=== PATIENT | female | born 1960 | race Caucasian/White ===

== ENCOUNTER 2020-09-05 09:16 | Emergency (ER) | payer MEDICARE ==
[~2020-09-05] VITALS: Ht 152.4 cm; Wt 61.2 kg
[2020-09-05] MEDS ORDERED: TYLENOL325 M1 PO (09:25)
[2020-09-05] MEDS ORDERED: PROAIR RESPICL90 MCG (09:26)
[2020-09-05] MEDS ORDERED: BIOTIN5000 MCG PO (09:26)
[2020-09-05] MEDS ORDERED: DIAZEPAM 5 MG5 MG (09:26)
[2020-09-05] MEDS ORDERED: NEURONTIN100 MG (09:33)
[2020-09-05] MEDS ORDERED: LEVOTHYROXINE125 MC1 PO (09:33)
[2020-09-05] MEDS ORDERED: CORTEF 20 MG TA20 MG PO (09:33)
[2020-09-05] MEDS ORDERED: NICOTINE PATCH1 EAC2 (09:34)
[2020-09-05] MEDS ORDERED: OXYCODONE HCL5 MG PO (09:34)
[2020-09-05] MEDS ORDERED: ONDANSETRON ODT8 MG PO (09:34)
[2020-09-05 09:47] LABS: ABSOLUTE BASOPHILS 0.1 thou/uL (0.0-0.2); ABSOLUTE EOSINOPHILS 0.2 thou/uL (0.0-0.7); ABSOLUTE LYMPHOCYTES 1.2 thou/uL (0.8-5.3); ABSOLUTE MONOCYTES 0.5 thou/uL (0.0-1.2); BASOPHILS 0.9 %; HEMATOCRIT 28.2 % (37.0-47.0); HEMOGLOBIN 8.6 gm/dL (12.0-15.0); LYMPHOCYTES 15.3 %; MCH 25.8 pg (26.0-34.0); MCHC 30.3 g/dL (28.0-37.0); MCV 85.1 fL (80.0-100.0); MONOCYTES 6.7 %; MPV 8.5 fl. (7.2-11.1); NUCLEATED RBCS 0 /100WBC; PLATELET COUNT* 257 thou/uL (150-400); POLYS 75.1 %; RBC 3.32 mil/uL (4.20-5.00)
[2020-09-05 09:57] LABS: CALCIUM 8.7 mg/dL (8.5-10.1); CREATININE 0.6 mg/dL (0.6-1.3); POTASSIUM 3.7 mmol/L (3.5-5.1)
[2020-09-05 10:00] LABS: APTT 21.4 Seconds (25.0-31.3); PROTIME 10.3 Seconds (9.20-11.50)
[2020-09-05 10:02] LABS: ALBUMIN 2.8 g/dL (3.4-5.0); TOTAL BILIRUBIN 0.2 mg/dL (<0.1-1.0); TOTAL PROTEIN 6.4 g/dL (6.4-8.2)
[2020-09-05 11:14] VITALS: BP 120/59
--- NOTE | 2020-09-05 14:33 | EKG ---
[place] [address] ELECTROCARDIOGRAM REPORT Name: KIAH MENDEZ Room: [facility]#: [id number] Admission: 09/05/20 Attend Phys: Discharge: 09/05/20 Date of : 58 Date of Service: 09/05/20926 Report #: [id number] THIS REPORT FOR: //name// [facility] ED Test Date: 2020-09-05 Test Time: 09:27:01 Pat Name: KIAH MENDEZ Department: Room: Gender: Card Fixer: : 1960 Requested By: Lorenzo Sanchez Order Number: [id number] MD: Shine Castillo Measurements Intervals [place] Rate: 89 P: [place]: QRS: 24 QRSD: 91 T: 18 QT: 339 QTc: 413 Interpretive Statements Atrial fibrillation Low voltage, precordial leads RSR' in V1 or V2, probably normal variant No previous ECG available for comparison Electronically Signed On 09-05-2020 14:32:48 CDT by Shine Castillo [email or web address] <ELECTRONICALLY SIGNED> By: Shine Castillo MD, [facility] 09/05/20 1432 6 6 Shine Castillo MD, [facility] /EPI
== END 2020-09-05 11:16 | disposition home or self-care (01) ==
LOC: M.ERS 09:16
PROVIDERS: Family Medicine
DX: S93.492A Sprain of other ligament of left ankle, initial encounter (principal); Z98.890 Other specified postprocedural states; Z85.118 Personal history of other malignant neoplasm of bronchus and lung; W18.39XA Other fall on same level, initial encounter; Y93.89 Activity, other specified; Y92.091 Bathroom in other non-institutional residence as the place of occurrence of the external cause; Y99.8 Other external cause status

== ENCOUNTER → 2020-10-30 | Outpatient (CLI) | payer OTHER ==
[~2020-10-30] MED LIST: BIOTIN5000 MCG PO; CORTEF 20 MG TA20 MG PO; DIAZEPAM 5 MG5 MG; LEVOTHYROXINE125 MC1 PO; NEURONTIN100 MG; NICOTINE PATCH1 EAC2; ONDANSETRON ODT8 MG PO; OXYCODONE HCL5 MG PO; PROAIR RESPICL90 MCG; TYLENOL325 M1 PO
--- NOTE | 2020-11-12 08:20 | PF ---
[address] [address] PULMONARY FUNCTION REPORT Name: KIAH MENDEZ Room: [facility]#: [id number] Admission: 10/30/20 Attend Phys: Physician not on staf Discharge: Date of : 58 Report #: [id number] THIS REPORT FOR: cc: PATSY MELO M.D, JEAN-PHILIPPE E. M.D Pervez, Adeel MD ~ DOC #: [id number] Gerry Ackerman MD DATE OF VISIT: 10/30/2020 The FEV1/FVC ratio is decreased to 59% with an FVC moderately decreased to 39%. The FEV1 is decreased to 30% with FEF 25-75 is decreased only 9%. After the administration of a bronchodilator, there is a 16% increase in FVC and a 10% increase in FEV1 and increase in FVC does not exceed 200 mL. Post bronchodilator FEV1 is 0.71 liters. LUNG VOLUMES: Not available. The DLCO as adjusted for hemoglobin is markedly decreased to 40% only. FLOW VOLUME LOOP: Concave upwards. IMPRESSION: 1. Severe obstruction with some improvement with albuterol, which is just below the criteria for reversibility. 2. Would need lung volumes to evaluate as to whether significant restriction is also present. 3. The DLCO as adjusted for hemoglobin is markedly decreased to 40% only. MD KATHY Meyer/KORTNEY/JAKE <ELECTRONICALLY SIGNED> By: Gerry Ackerman MD 11/12/20819 55 0205Atricia Ackerman MD /nt
== END ==
LOC: M.PUL 14:00
DX: C34.12 Malignant neoplasm of upper lobe, left bronchus or lung (principal); R94.2 Abnormal results of pulmonary function studies

== ENCOUNTER 2021-01-14 10:46 | Emergency (ER) | payer MEDICARE, OTHER ==
[~2021-01-14] VITALS: Ht 147.3 cm; Wt 73.9 kg
[~2021-01-14 10:46] MED LIST changes: +LEVO-T100 MCG PO; -LEVOTHYROXINE125 MC1 PO
[2021-01-14] MEDS ORDERED: CORTEF10 MG PO (11:06)
[2021-01-14] MEDS ORDERED: ZOLOFT 50 MG TA50 MG PO (11:06)
[2021-01-14] MEDS ORDERED: DEXAMETHASO4 MG/1 ML IM (11:07)
[2021-01-14] MEDS ORDERED: STIOLTO RESPIMAT4 GM INH (11:07)
[2021-01-14] MEDS ORDERED: OXYBUTYNIN 5 MG5 M2 PO (11:08)
[2021-01-14 11:18] LABS: NUCLEATED RBCS 0 /100WBC; RDW-CV 16.7 % (10.5-14.5)
[2021-01-14 11:20] LABS: ABSOLUTE BASOPHILS 0.1 thou/uL (0.0-0.2); ABSOLUTE EOSINOPHILS 0.4 thou/uL (0.0-0.7); ABSOLUTE MONOCYTES 0.4 thou/uL (0.0-1.2); ABSOLUTE NEUTROPHILS 5.4 thou/uL (1.6-8.1); BASOPHILS 1.2 %; EOSINOPHILS 5.9 %; HEMATOCRIT 27.3 % (37.0-47.0); HEMOGLOBIN 8.4 gm/dL (12.0-15.0); LYMPHOCYTES 13.6 %; MCH 24.2 pg (26.0-34.0); MCHC 30.8 g/dL (28.0-37.0); MCV 78.4 fL (80.0-100.0); MONOCYTES 5.3 %; MPV 8.4 fl. (7.2-11.1); PLATELET COUNT* 245 thou/uL (150-400); RBC 3.48 mil/uL (4.20-5.00); WBC 7.3 thou/uL (4.0-11.0)
[2021-01-14 11:25] LABS: CALCIUM 8.5 mg/dL (8.5-10.1); CREATININE 0.7 mg/dL (0.6-1.3); POTASSIUM 3.8 mmol/L (3.5-5.1)
[2021-01-14 11:30] LABS: ALBUMIN 3.2 g/dL (3.4-5.0); TOTAL BILIRUBIN 0.2 mg/dL (<0.1-1.0); TOTAL PROTEIN 7.1 g/dL (6.4-8.2)
[2021-01-14 12:57] LABS: URINE BILIRUBIN NEGATIVE (Negative); URINE BLOOD NEGATIVE (Negative); URINE CLARITY CLEAR; URINE COLOR YELLOW; URINE GLUCOSE-RANDOM NEGATIVE (Negative); URINE KETONES NEGATIVE (Negative); URINE LEUKOCYTES-REFLEX 2+ (Negative); URINE NITRITE-REFLEX POSITIVE (Negative); URINE PROTEIN TRACE (Negative); URINE UROBILINOGEN 0.2 E.U./dl (0.2-1.0)
[2021-01-14 13:04] LABS: SQUAMOUS 0-3 Few /LPF (0-3)
[2021-01-14 13:05] LABS: BACTERIA-REFLEX >30 Many /HPF (None Seen); CASTS None Seen /LPF (None Seen); CRYSTALS None Seen /LPF (None Seen); MUCUS 0-3 Light strn/LPF (None Seen); URINE RBC 0-2 Rare /HPF (0-2)
[2021-01-14] MEDS ORDERED: CEPHALEXIN500 MG PO (13:52)
[2021-01-14 14:37] VITALS: BP 132/54
--- NOTE | 2021-01-15 15:23 | EKG ---
[place] [address] ELECTROCARDIOGRAM REPORT Name: KIAH MENDEZ Room: [facility]#: [id number] Admission: 01/14/21 Attend Phys: Discharge: 01/14/21 Date of : 58 Date of Service: 01/14/21 1059 Report #: [id number] THIS REPORT FOR: //name// [facility] ED Test Date: 2021-01-14 Test Time: 10:59:14 Pat Name: KIAH MENDEZ Department: Room: Gender: Twitchell Operator: SONIA : 1960 Requested By: Asher Diaz Order Number: [id number] MD: Ed Miner Measurements Intervals [place] Rate: 81 P: -29 [place]: 130 QRS: 21 QRSD: 85 T: 4 QT: 346 QTc: 402 Interpretive Statements Sinus rhythm Low voltage, precordial leads RSR' in V1 or V2, right VCD Baseline wander in lead(s) V1 Compared to ECG 09/05/2020 09:27:01 sinus rhythm persists Electronically Signed On 01-15-2021 15:23:26 CDT by Ed Miner [email or web address] <ELECTRONICALLY SIGNED> By: Ed Miner MD, [facility] 01/15/21 1523 1059 1059 Ed Miner MD, [facility] /EPI
== END 2021-01-14 14:37 | disposition home or self-care (01) ==
LOC: M.ERS 10:46
PROVIDERS: Emergency Medicine Emergency Medical Services
DX: N39.0 Urinary tract infection, site not specified (principal); Z98.890 Other specified postprocedural states

== ENCOUNTER 2021-03-14 18:07 | Inpatient (IN) | payer MEDICARE ==
[~2021-03-14] VITALS: Ht 162.6 cm; Wt 79.0 kg
[~2021-03-14 18:07] MED LIST changes: +CEPHALEXIN500 MG PO; +CORTEF10 MG PO; +DEXAMETHASO4 MG/1 ML IM; -NEURONTIN100 MG; +NEURONTIN100 MG PO; +OXYBUTYNIN 5 MG5 M2 PO; +STIOLTO RESPIMAT4 GM INH; +ZOLOFT 50 MG TA50 MG PO
[2021-03-14 18:12] VITALS: BP 137/71
[2021-03-14 19:44] LABS: ABSOLUTE BASOPHILS 0.1 thou/uL (0.0-0.2); ABSOLUTE EOSINOPHILS 0.2 thou/uL (0.0-0.7); ABSOLUTE LYMPHOCYTES 1.2 thou/uL (0.8-5.3); ABSOLUTE MONOCYTES 0.5 thou/uL (0.0-1.2); ABSOLUTE NEUTROPHILS 6.6 thou/uL (1.6-8.1); BASOPHILS 0.7 %; EOSINOPHILS 1.8 %; HEMOGLOBIN 9.4 gm/dL (12.0-15.0); LYMPHOCYTES 14.2 %; MCH 24.8 pg (26.0-34.0); MCHC 30.3 g/dL (28.0-37.0); MCV 81.9 fL (80.0-100.0); MONOCYTES 5.5 %; MPV 8.3 fl. (7.2-11.1); NUCLEATED RBCS 0 /100WBC; PLATELET COUNT* 250 thou/uL (150-400); POLYS 77.8 %; RBC 3.78 mil/uL (4.20-5.00); WBC 8.5 thou/uL (4.0-11.0)
[2021-03-14 19:55] LABS: CALCIUM 8.5 mg/dL (8.5-10.1); CREATININE 0.7 mg/dL (0.6-1.3); POTASSIUM 4.3 mmol/L (3.5-5.1)
[2021-03-14 19:59] LABS: ALBUMIN 3.2 g/dL (3.4-5.0); TOTAL BILIRUBIN 0.2 mg/dL (<0.1-1.0)
[2021-03-14 23:26] LABS: URINE BILIRUBIN NEGATIVE (Negative); URINE BLOOD NEGATIVE (Negative); URINE CLARITY CLEAR; URINE COLOR YELLOW; URINE GLUCOSE-RANDOM NEGATIVE (Negative); URINE KETONES NEGATIVE (Negative); URINE LEUKOCYTES NEGATIVE (Negative); URINE NITRITE NEGATIVE (Negative); URINE PROTEIN NEGATIVE (Negative); URINE SPECIFIC GRAVITY 1.025 (1.005-1.030); URINE UROBILINOGEN 0.2 E.U./dl (0.2-1.0)
[2021-03-15] VITALS (18 sets, daily range): BP systolic 83–146; BP diastolic 50–84
--- NOTE | 2021-03-15 09:39 | EKG ---
[place] [address] ELECTROCARDIOGRAM REPORT Name: MENDEZKIAH Lenora Room: [address]#: [id number] Admission: 03/14/21 Attend Phys: Loli Malagon MD Discharge: Date of : 58 Date of Service: 03/14/21 1826 Report #: [id number] THIS REPORT FOR: //name// [facility] ED Test Date: 2021-03-14 Test Time: 18:26:41 Pat Name: KIAH MENDEZ Department: Room: [facility] Gender: F School Commissioner: DAT : 1960 Requested By: Asher Diaz Order Number: [id number] MD: Ed Miner Measurements Intervals [place] Rate: 86 P: 44 RI: 156 QRS: 18 QRSD: 87 T: 4 QT: 356 QTc: 426 Interpretive Statements Sinus rhythm Low voltage, precordial leads RSR' in V1 or V2, right VCD Compared to ECG 01/14/2021 10:59:14 Minor IVCD right persists Electronically Signed On 03-15-2021 9:39:07 CDT by Ed Miner [email or web address] <ELECTRONICALLY SIGNED> By: Ed Miner MD, FAC 03/15/21 0939 1826 1826 Ed Miner MD, FAC /EPI
[2021-03-15 10:33] LABS: MAGNESIUM 1.8 mg/dL (1.8-2.4)
[2021-03-15 10:46] LABS: PHOSPHORUS* 4.3 mg/dL (2.5-4.9)
[2021-03-15 10:52] LABS: BE 7.3 mmol/L (-2 to +3)
[2021-03-15 10:55] LABS: PCO2 81.6 mmHg (35.0-45.0); PO2 188.3 mmHg (75.0-100.0); pH 7.268 (7.340-7.450)
[2021-03-15 13:02] LABS: PO2 101.5 mmHg (75.0-100.0); pH 7.326 (7.340-7.450)
[2021-03-15 13:06] LABS: PCO2 72.5 mmHg (35.0-45.0)
[2021-03-15 15:41] LABS: ABSOLUTE EOSINOPHILS 0.1 thou/uL (0.0-0.7); ABSOLUTE LYMPHOCYTES 1.1 thou/uL (0.8-5.3); ABSOLUTE MONOCYTES 0.5 thou/uL (0.0-1.2); ABSOLUTE NEUTROPHILS 5.5 thou/uL (1.6-8.1); BASOPHILS 0.7 %; EOSINOPHILS 1.4 %; HEMATOCRIT 29.7 % (37.0-47.0); LYMPHOCYTES 15.5 %; MCHC 30.2 g/dL (28.0-37.0); MCV 82.7 fL (80.0-100.0); MONOCYTES 7.3 %; MPV 8.2 fl. (7.2-11.1); NUCLEATED RBCS 0 /100WBC; PLATELET COUNT* 225 thou/uL (150-400); POLYS 75.1 %; RBC 3.59 mil/uL (4.20-5.00); RDW-CV 18.8 % (10.5-14.5); WBC 7.4 thou/uL (4.0-11.0)
[2021-03-15 15:56] LABS: APTT 23.6 Seconds (25.0-31.3); INR 1.1; PROTIME 11.2 Seconds (9.20-11.50)
[2021-03-15 16:06] LABS: BE 7.3 mmol/L (-2 to +3); PO2 122.1 mmHg (75.0-100.0)
[2021-03-15 16:10] LABS: PCO2 76.7 mmHg (35.0-45.0); pH 7.288 (7.340-7.450)
[2021-03-15 16:24] LABS: ALKALINE PHOSPHATASE 171 U/L (46-116); ANION GAP < 0 mmol/L (7-16); BUN 22 mg/dL (7-18); CALCIUM 7.8 mg/dL (8.5-10.1); CHLORIDE 104 mmol/L (98-107); CO2 38 mmol/L (21-32); GLUCOSE 94 mg/dL (70-99); MAGNESIUM 1.9 mg/dL (1.8-2.4); POTASSIUM 4.2 mmol/L (3.5-5.1); SGOT 80 U/L (15-37); SGPT 82 U/L (30-65); SODIUM 138 mmol/L (136-145); TOTAL BILIRUBIN 0.3 mg/dL (<0.1-1.0); TOTAL PROTEIN 6.7 g/dL (6.4-8.2)
[2021-03-15 20:42] LABS: BE 7.8 mmol/L (-2 to +3); PO2 102.7 mmHg (75.0-100.0)
[2021-03-15 20:45] LABS: PCO2 77.7 mmHg (35.0-45.0); pH 7.289 (7.340-7.450)
[2021-03-16] VITALS (40 sets, daily range): BP systolic 87–155; BP diastolic 36–82
[2021-03-16 00:42] LABS: HEMOGLOBIN 9.1 gm/dL (12.0-15.0); MCH 25.1 pg (26.0-34.0); MCHC 30.2 g/dL (28.0-37.0); MCV 82.9 fL (80.0-100.0); MPV 8.4 fl. (7.2-11.1); NUCLEATED RBCS 0 /100WBC; PLATELET COUNT* 228 thou/uL (150-400); RBC 3.62 mil/uL (4.20-5.00); RDW-CV 19.5 % (10.5-14.5); WBC 9.4 thou/uL (4.0-11.0)
[2021-03-16 00:43] LABS: BE 7.8 mmol/L (-2 to +3); PCO2 VENOUS 69.1 mmHg (41.0-51.0); PO2 VENOUS 133.6 mmHg (35.0-45.0)
[2021-03-16 00:57] LABS: CALCIUM 8.3 mg/dL (8.5-10.1); CREATININE 0.9 mg/dL (0.6-1.3); PHOSPHORUS* 4.1 mg/dL (2.5-4.9); POTASSIUM 4.3 mmol/L (3.5-5.1)
[2021-03-16 01:03] LABS: CALCIUM 8.2 mg/dL (8.5-10.1); MAGNESIUM 1.9 mg/dL (1.8-2.4); POTASSIUM 4.4 mmol/L (3.5-5.1); TOTAL BILIRUBIN 0.2 mg/dL (<0.1-1.0)
[2021-03-16 03:59] LABS: ABSOLUTE LYMPHOCYTES 0.7 thou/uL (0.8-5.3); ABSOLUTE NEUTROPHILS 8.7 thou/uL (1.6-8.1); PLATELET ESTIMATE ADEQUATE
[2021-03-16 04:00] LABS: ANISOCYTOSIS 1+
[2021-03-16 04:01] LABS: POLYCHROMASIA 1+
[2021-03-16 09:55] LABS: BE 6.3 mmol/L (-2 to +3)
[2021-03-16 10:02] LABS: PCO2 76.2 mmHg (35.0-45.0); PO2 169.7 mmHg (75.0-100.0)
[2021-03-17] VITALS (15 sets, daily range): BP systolic 87–116; BP diastolic 46–78
[2021-03-17 06:24] LABS: HEMATOCRIT 25.6 % (37.0-47.0); HEMOGLOBIN 7.8 gm/dL (12.0-15.0); MCH 25.2 pg (26.0-34.0); MCHC 30.4 g/dL (28.0-37.0); MCV 82.7 fL (80.0-100.0); MPV 8.7 fl. (7.2-11.1); RBC 3.1 mil/uL (4.20-5.00); RDW-CV 19.5 % (10.5-14.5); WBC 10.3 thou/uL (4.0-11.0)
[2021-03-17 06:43] LABS: ALBUMIN 2.9 g/dL (3.4-5.0); MAGNESIUM 2.1 mg/dL (1.8-2.4); POTASSIUM 4.2 mmol/L (3.5-5.1); TOTAL BILIRUBIN 0.2 mg/dL (<0.1-1.0)
[2021-03-17 06:46] LABS: CALCIUM 8.4 mg/dL (8.5-10.1); CREATININE 0.8 mg/dL (0.6-1.3); TOTAL PROTEIN 6.6 g/dL (6.4-8.2)
[2021-03-18] VITALS (8 sets, daily range): BP systolic 112–135; BP diastolic 50–710
--- NOTE | 2021-03-18 12:10 | 2DMMODE ---
[place] [address] 2 D/M-MODE ECHOCARDIOGRAM Name: KIAH MENDEZ Lenora Room: [address] IN [facility]#: [id number] Admission: 03/14/21 Attend Phys: Loli Malagon MD Discharge: Date of : 58 Date of Service: 03/18/21 1210 Report #: [id number] THIS REPORT FOR: cc: PATSY MELO M.D, JEAN-PHILIPPE E. M.D Blick, David R. MD [facility] ~ APPROVED REPORT Study performed: 03/15/2021 15:32:34 EXAM: Comprehensive 2D, Doppler, and color-flow Echocardiogram Patient Location: In-Patient Room #: 203 Status: routine BSA: 1.82 HR: 89 bpm BP: 97/55 mmHg Rhythm: NSR Other Information Study Quality: Fair Indications Dyspnea 2D Dimensions IVSd: 10.22 (7-11mm) LVOT Diam: 18.67 (18-24mm) LVDd: 41.18 mm PWd: 9.02 (7-11mm) Ascending Ao: 29.78 (22-36mm) LVDs: 26.09 (25-40mm) Aortic Root: 28.95 mm Aortic Valve AoV Peak Chandrakant.: 1.33 m/s AO Peak Gr.: 7.03 mmHg LVOT Max P.13 mmHg AO Mean Gr.: 4.34 mmHg LVOT Mean P.55 mmHg LVOT Max V: 0.88 m/s AO V2 VTI: 22.47 cm LVOT Mean V: 0.58 m/s LISANDRO (VTI): 1.93 cm2 LVOT V1 VTI: 15.83 cm Mitral Valve E/A Ratio: 0.79 MV Decel. Time: 248.63 ms MV E Max Chandrakant.: 0.71 m/[place] [address] 2 D/M-MODE ECHOCARDIOGRAM Name: JERZY MENDEZWilber Cooley Room: [address] IN [facility].#: [id number] Admission: 03/14/21 Attend Phys: Loli Malagon MD Discharge: Date of : 58 Date of Service: 03/18/21 1210 Report #: [id number] PHT: 72.10 ms MVA (PHT): 3.05 cm2 Pulmonary Valve PV Peak Chandrakant.: 0.95 m/s PV Peak Gr.: 3.59 mmHg Tricuspid Valve RAP Estimate: 5.00 mmHg TR Peak Gr.: 22.49 mmHg RVSP: 27.00 mmHg PA Pressure: 27.00 mmHg Left Ventricle The left ventricle is normal size. Endocardium was not well visualized. There is normal left ventricular wall thickness. Left ventricular systolic function is normal. The left ventricular ejection fraction is within the normal range. LVEF is 55-60%. Grade I - abnormal relaxation pattern. Right Ventricle The right ventricle is normal size. The right ventricular systolic function is normal. Atria The left atrium size is normal. The right atrium size is normal. Aortic Valve The aortic valve is normal in structure. No aortic regurgitation is present. There is no aortic valvular stenosis. Mitral Valve The mitral valve is normal in structure. There is no mitral valve regurgitation noted. No evidence of mitral valve stenosis. Tricuspid Valve The tricuspid valve is normal in structure. Trace tricuspid regurgitation. No pulmonary hypertension. Pulmonic Valve Pulmonic valve is not well visualized. There is no pulmonic valvular regurgitation. Great Vessels The aortic root is normal in size. IVC is normal in size and collapses >50% [place] [address] 2 D/M-MODE ECHOCARDIOGRAM Name: KIAH MENDEZ Lenora Room: [address]#: [id number] Admission: 03/14/21 Attend Phys: Loli Malagon MD Discharge: Date of : 58 Date of Service: 03/18/21 1210 Report #: [id number] Pericardium There is no pericardial effusion. <Conclusion> Left ventricular systolic function is normal. The left ventricular ejection fraction is within the normal range. <ELECTRONICALLY SIGNED> By: Shine Castillo MD, FACC 03/18/21 1210 1210 1210 Shine Castillo MD, FAC /INF
[2021-03-18 13:04] LABS: BE 9.5 mmol/L (-2 to +3); pH 7.363 (7.340-7.450)
[2021-03-18 13:08] LABS: PCO2 65.8 mmHg (35.0-45.0)
--- NOTE | 2021-03-18 14:25 | CON ---
[address] [address] CONSULTATION Name: KIAH MENDEZ Room: [address] IN .R.#: [id number] Admission: 03/14/21 Attend Phys: Loli Malagon MD Discharge: Date of : 58 Report #: [id number] THIS REPORT FOR: cc: PATSY MELO M.D, JEAN-PHILIPPE E. M.D Pervez, Adeel MD ~ DATE OF CONSULTATION: 03/15/2021 REQUESTING PHYSICIAN: Consult has been requested by Dr. Fam. INDICATION FOR CONSULTATION: Acute on chronic hypercarbic respiratory failure. HISTORY OF PRESENT ILLNESS: This is a 60-year-old female. Past medical history is as mentioned below. The patient at this time is very lethargic and is on a BiPAP; therefore, information available is limited. We do know that she uses oxygen at home. Also, there is a previous pulmonary function test report available, which is consistent with severe obstruction. The patient is reported to have had lung cancer and has had radiation to this with reported poosible brain metastasis in the past, so she has had a CT head now, though it appears that if present, these metastases are not large enough to be seen on the CT. The patient is now admitted. Yesterday presentation was with a fall. The patient is reported to have slipped and then had pain in the left shoulder. There is no obvious fracture noted on the x-rays. Yesterday, the patient was requiring 3 liters oxygen via nasal cannula to maintain O2 saturation, which appears to be close to her baseline oxygen use. She has declined today. She has a blood pressure on the lower side at 97/55. Her chest x-ray does look worse than yesterday as well. It could as well it is possible that there are interstitial infiltrates developing; however, acute change is more likely to be due to an increase in pulmonary vascular congestion. She also was febrile with a temperature of 38.1. She has had a CT of the abdomen and pelvis performed with IV dye today, which does not show any acute intraabdominal pathology. The patient is unable to provide a further history or review of systems. PAST MEDICAL HISTORY: Lung cancer with possibilty of brain metastasis, records not available, no metastatsis visible on CT Head . The patient is only known to have had radiation for this. No other known therapy to us, but information available is limited. COPD by last lung function tests are consistent with severe obstruction, long-term use of oxygen at home, long-term use of hydrocortisone at home, likely for adrenal insufficiency, hypothyroidism. I do not have a measure of her left ventricular [place] [address] CONSULTATION Name: JERZY MENDEZWilber Cooley Room: [address] [place] .R.#: [id number] Admission: 03/14/21 Attend Phys: Loli Malagon MD Discharge: Date of : 58 Report #: [id number] this time. SOCIAL HISTORY: Information regarding smoking, ethanol abuse or drug abuse is not available at this time. IMMUNIZATION HISTORY: It is unknown as to whether the patient is vaccinated for COVID-19. ALLERGIES: No known drug allergies. CURRENT MEDICATIONS: The list is in [employer] and is reviewed. HOME MEDICATIONS: Also list in [employer] reviewed. FAMILY HISTORY: No known family history. PHYSICAL EXAMINATION: GENERAL: The patient is on a BiPAP of 14/6 with 60% FiO2. She is saturating 94-95%. She is very lethargic, but briefly, opened eyes to verbal commands. VITAL SIGNS: She has a pulse of 99 and a blood pressure of 97/55. She was not ever being desaturated on the BiPAP. Temperature was 36.1; however, she had a temperature of 38.1 earlier. Body mass index 29. HEENT: Head is normocephalic and atraumatic. There is no throat erythema. Throat examination; however, is limited due to BiPAP in place. NECK: Does not show raised JVP asymmetry, mass or lymph nodes. CHEST: Symmetrical expansion on inspection and palpation. On auscultation, breath sounds are bilaterally equal, but decreased. Expirations are prolonged. I do not hear any added sounds. HEART: Regular. There is no murmur. ABDOMEN: Soft and nontender. EXTREMITIES: Lower extremities show no edema and no calf tenderness. SKIN: Dry and intact. NEUROLOGIC: Moves all extremities bilaterally equally and spontaneously with no focal deficit identified. RADIOGRAPHIC DATA: Chest x-ray since yesterday shows a change. I suspect that this is more likely due to increase in pulmonary vascular congestion. Interstitial infiltrates can also lead to this picture. ASSESSMENT AND PLAN: 1. Acute on chronic hypercarbic and hypoxemic respiratory failure. For now, we will keep her on BiPAP and switch BiPAP over to AVAPS mode. We will follow ABGs. Considering her respiratory failure, I would for now, not administer the benzodiazepine. If sedation is needed, then we will consider a Precedex drip. [address] [address] CONSULTATION Name: KIAH MENDEZ Room: [address]#: [id number] Admission: 03/14/21 Attend Phys: Loli Malagon MD Discharge: Date of : 58 Report #: [id number] The patient, however, does not appear to be needing it at this time. We will use fentanyl if needed for severe pain. Recommend obtaining a central access with a central line. 2. Pulmonary infiltrates/fever/fluid overload. It appears more likely to me that the findings in the chest x-ray today are due to increase in pulmonary vascular congestion, but interstitial infiltrates can also lead to this picture. Considering this for now, I held her IV fluids, but I ordered stat labs and will reassess once these are available. In the meantime, will continue with Zosyn and I agree with Zosyn. I may consider adding a second agent, likely doxycycline. More cultures and serologies are ordered. 3. Chronic obstructive pulmonary disease exacerbation. Based on the last pulmonary function test, she appears to have significant chronic obstructive pulmonary disease; therefore, she is likely to respond to Solu-Medrol. I ordered the same, also ordered DuoNebs. 4. History of lung cancer with possible brain metastasis. See discussion above. CT head does not show evidence of a bleed or mass 5. Adrenal insufficiency. Note that she remains on hydrocortisone long-term. In addition, I did order Solu-Medrol as above. 6. Status post fall with right arm and neck pain. She had a CT cervical spine, which in addition to the x-ray shoulder does not show major abnormalities. 7. Fever. Discussion regarding chest x-ray findings as above. In addition, she has had a CT of the abdomen and pelvis as well, which does not identify a focus of sepsis. 8. Deep venous thrombosis prophylaxis, Lovenox. 9. Gastrointestinal prophylaxis. We will order Protonix. 10. The patient is critically ill at this time. Total time spent providing critical care to this patient today is 46 minutes. <ELECTRONICALLY SIGNED> By: Gerry Ackerman MD 03/18/21 1425 1355 2047Atricia Ackerman MD /nt
[2021-03-19 04:29] VITALS: BP 112/58
[2021-03-19 06:19] LABS: ABSOLUTE LYMPHOCYTES 0.8 thou/uL (0.8-5.3); ABSOLUTE MONOCYTES 0.4 thou/uL (0.0-1.2); ABSOLUTE NEUTROPHILS 5.4 thou/uL (1.6-8.1); BASOPHILS 0.2 %; EOSINOPHILS 0.3 %; HEMATOCRIT 26.9 % (37.0-47.0); HEMOGLOBIN 8.2 gm/dL (12.0-15.0); LYMPHOCYTES 12.4 %; MCH 25.1 pg (26.0-34.0); MCHC 30.6 g/dL (28.0-37.0); MCV 82.1 fL (80.0-100.0); MONOCYTES 6.7 %; MPV 8.8 fl. (7.2-11.1); NUCLEATED RBCS 0 /100WBC; PLATELET COUNT* 191 thou/uL (150-400); POLYS 80.4 %; RBC 3.28 mil/uL (4.20-5.00); RDW-CV 19.9 % (10.5-14.5); WBC 6.7 thou/uL (4.0-11.0)
[2021-03-19 06:28] LABS: ALBUMIN 3.1 g/dL (3.4-5.0); CALCIUM 8.8 mg/dL (8.5-10.1); CREATININE 0.9 mg/dL (0.6-1.3); MAGNESIUM 1.8 mg/dL (1.8-2.4); POTASSIUM 3.7 mmol/L (3.5-5.1); TOTAL BILIRUBIN 0.2 mg/dL (<0.1-1.0); TOTAL PROTEIN 6.2 g/dL (6.4-8.2)
[2021-03-19 08:30] VITALS: BP 133/62
[2021-03-19 09:00] VITALS: BP 133/62
[2021-03-19 11:28] LABS: BE 10.7 mmol/L (-2 to +3); PO2 81.1 mmHg (75.0-100.0); pH 7.359 (7.340-7.450)
[2021-03-19 11:30] VITALS: BP 115/62
[2021-03-19 11:30] LABS: PCO2 69.1 mmHg (35.0-45.0)
[2021-03-19 15:55] VITALS: BP 121/74
[2021-03-19 20:00] VITALS: BP 130/64
[2021-03-20 00:05] VITALS: BP 120/69
[2021-03-20 04:40] VITALS: BP 103/65
[2021-03-20 04:42] LABS: HEMATOCRIT 28.7 % (37.0-47.0); HEMOGLOBIN 8.8 gm/dL (12.0-15.0); MCH 25.5 pg (26.0-34.0); MCHC 30.7 g/dL (28.0-37.0); MPV 8.9 fl. (7.2-11.1); RBC 3.46 mil/uL (4.20-5.00); RDW-CV 19.7 % (10.5-14.5); WBC 6.1 thou/uL (4.0-11.0)
[2021-03-20 05:02] LABS: ALBUMIN 3.1 g/dL (3.4-5.0); CALCIUM 9.1 mg/dL (8.5-10.1); CREATININE 0.7 mg/dL (0.6-1.3); MAGNESIUM 2.2 mg/dL (1.8-2.4); POTASSIUM 4.4 mmol/L (3.5-5.1); TOTAL BILIRUBIN 0.2 mg/dL (<0.1-1.0); TOTAL PROTEIN 6.7 g/dL (6.4-8.2)
[2021-03-20 07:30] VITALS: BP 114/58
[2021-03-20 07:33] VITALS: BP 110/59
[2021-03-20 11:58] VITALS: BP 116/61
[2021-03-20] MEDS ORDERED: LEVOFLOXACIN500 MG PO (12:22)
[2021-03-20] MEDS ORDERED: MIDODRINE HCL 55 M1 PO (12:22)
[2021-03-20] MEDS ORDERED: IPRAT-ALBUT 0.5-3 ML INH (12:22)
[2021-03-20] MEDS ORDERED: PREDNISONE 10 M10 M1 PO (12:22)
== END 2021-03-20 16:07 | DRG 177 ==
LOC: M.ERS 18:07 → M.2W 21:45 → M.ICU 21:45 → M.TBA-ER 21:45 → M.2W 03-15 00:10 → M.ICU 03-15 16:14 → M.2W 03-17 19:14
PROVIDERS: Emergency Medicine; Emergency Medicine Emergency Medical Services; Internal Medicine; Internal Medicine Critical Care Medicine; Orthopaedic Surgery; Pediatrics; ADMIT Family Medicine; ATTEND Family Medicine
PROC: 5A09357 Assistance with Respiratory Ventilation, Less than 24 Consecutive Hours, Continuous Positive Airway Pressure (ICD-10-PCS; principal; 2021-03-15)
PROC: 02HV33Z Insertion of Infusion Device into Superior Vena Cava, Percutaneous Approach (ICD-10-PCS; principal; 2021-03-15)
PROC: B548ZZA Ultrasonography of Superior Vena Cava, Guidance (ICD-10-PCS; principal; 2021-03-15)
PROC: 5A0935A Assistance with Respiratory Ventilation, Less than 24 Consecutive Hours, High Flow/Velocity Cannula (ICD-10-PCS; 2021-03-16)
PROC: 5A09357 Assistance with Respiratory Ventilation, Less than 24 Consecutive Hours, Continuous Positive Airway Pressure (ICD-10-PCS; 2021-03-17)
PROC: 5A0935A Assistance with Respiratory Ventilation, Less than 24 Consecutive Hours, High Flow/Velocity Cannula (ICD-10-PCS; 2021-03-17)
PROC: 5A0935A Assistance with Respiratory Ventilation, Less than 24 Consecutive Hours, High Flow/Velocity Cannula (ICD-10-PCS; 2021-03-18)
PROC: 5A09357 Assistance with Respiratory Ventilation, Less than 24 Consecutive Hours, Continuous Positive Airway Pressure (ICD-10-PCS; 2021-03-18)
PROC: 5A09357 Assistance with Respiratory Ventilation, Less than 24 Consecutive Hours, Continuous Positive Airway Pressure (ICD-10-PCS; 2021-03-19)
PROC: 5A09357 Assistance with Respiratory Ventilation, Less than 24 Consecutive Hours, Continuous Positive Airway Pressure (ICD-10-PCS; 2021-03-20)
DX: J15.6 Pneumonia due to other Gram-negative bacteria (principal); G93.41 Metabolic encephalopathy; J96.22 Acute and chronic respiratory failure with hypercapnia; J96.21 Acute and chronic respiratory failure with hypoxia; J44.0 Chronic obstructive pulmonary disease with (acute) lower respiratory infection; J44.1 Chronic obstructive pulmonary disease with (acute) exacerbation; E27.40 Unspecified adrenocortical insufficiency; R65.10 Systemic inflammatory response syndrome (SIRS) of non-infectious origin without acute organ dysfunction; E87.2 Acidosis; I95.9 Hypotension, unspecified; T67.1XXA Heat syncope, initial encounter; D64.9 Anemia, unspecified; F32.9 Major depressive disorder, single episode, unspecified; G62.9 Polyneuropathy, unspecified; E87.70 Fluid overload, unspecified; R77.8 Other specified abnormalities of plasma proteins; M54.2 Cervicalgia; R26.9 Unspecified abnormalities of gait and mobility; E07.9 Disorder of thyroid, unspecified; W18.30XA Fall on same level, unspecified, initial encounter; Z20.822 Contact with and (suspected) exposure to COVID-19; Y93.89 Activity, other specified; Y92.003 Bedroom of unspecified non-institutional (private) residence as the place of occurrence of the external cause; Z92.3 Personal history of irradiation; Y99.8 Other external cause status; Z85.118 Personal history of other malignant neoplasm of bronchus and lung; Z98.891 History of uterine scar from previous surgery; Z79.899 Other long term (current) drug therapy; Z85.05 Personal history of malignant neoplasm of liver; Z99.81 Dependence on supplemental oxygen

== ENCOUNTER 2021-03-20 14:59 | Inpatient (IN) | payer MEDICARE ==
[~2021-03-20] VITALS: Ht 162.6 cm; Wt 78.9 kg
[~2021-03-20 14:59] MED LIST changes: +IPRAT-ALBUT 0.5-3 ML INH; +LEVOFLOXACIN500 MG PO; +MIDODRINE HCL 55 M1 PO; +PREDNISONE 10 M10 M1 PO
[2021-03-20 20:00] VITALS: BP 132/84
[2021-03-21 04:31] LABS: HEMATOCRIT 29.5 % (37.0-47.0); HEMOGLOBIN 9.1 gm/dL (12.0-15.0); MCH 25.2 pg (26.0-34.0); MCHC 30.8 g/dL (28.0-37.0); MPV 8.6 fl. (7.2-11.1); RBC 3.59 mil/uL (4.20-5.00); RDW-CV 19.7 % (10.5-14.5); WBC 8.1 thou/uL (4.0-11.0)
[2021-03-21 04:51] LABS: CALCIUM 9.2 mg/dL (8.5-10.1); CREATININE 0.7 mg/dL (0.6-1.3); POTASSIUM 4.7 mmol/L (3.5-5.1)
[2021-03-21 08:00] VITALS: BP 122/70
[2021-03-21 19:43] VITALS: BP 118/69
[2021-03-22 07:48] VITALS: BP 113/70
[2021-03-22 20:00] VITALS: BP 118/62
[2021-03-23 07:30] VITALS: BP 92/46
[2021-03-23 08:04] VITALS: BP 92/46
[2021-03-23 17:30] VITALS: BP 106/55
[2021-03-24 08:00] VITALS: BP 117/68
[2021-03-24 19:56] VITALS: BP 114/62
[2021-03-25 07:30] VITALS: BP 125/66
[2021-03-25 19:00] VITALS: BP 105/62
[2021-03-26 07:30] VITALS: BP 114/61
[2021-03-26 07:54] VITALS: BP 114/61
[2021-03-26 19:00] VITALS: BP 116/65
[2021-03-27 06:41] LABS: HEMOGLOBIN 8.4 gm/dL (12.0-15.0); MCH 25.6 pg (26.0-34.0); MCHC 31.2 g/dL (28.0-37.0); MCV 82.1 fL (80.0-100.0); MPV 7.9 fl. (7.2-11.1); RBC 3.29 mil/uL (4.20-5.00); RDW-CV 19.9 % (10.5-14.5); WBC 8.6 thou/uL (4.0-11.0)
[2021-03-27 07:03] VITALS: BP 123/68
[2021-03-27 07:11] LABS: CALCIUM 8.6 mg/dL (8.5-10.1); CREATININE 0.7 mg/dL (0.6-1.3); POTASSIUM 3.7 mmol/L (3.5-5.1)
[2021-03-27 20:00] VITALS: BP 129/67
[2021-03-28 09:33] VITALS: BP 125/63
[2021-03-28 20:30] VITALS: BP 131/71
[2021-03-29 07:57] VITALS: BP 105/65
[2021-03-29 20:00] VITALS: BP 101/55
[2021-03-30 08:00] VITALS: BP 121/66
[2021-03-30 19:00] VITALS: BP 111/74
[2021-03-31 07:30] VITALS: BP 121/77
[2021-03-31 07:45] VITALS: BP 121/77
[2021-03-31 21:00] VITALS: BP 141/72
[2021-04-01 07:33] VITALS: BP 115/70
[2021-04-01 19:00] VITALS: BP 131/65
[2021-04-02 07:30] VITALS: BP 124/66
[2021-04-02 19:00] VITALS: BP 118/75
[2021-04-03 04:45] LABS: CALCIUM 8.7 mg/dL (8.5-10.1); CREATININE 0.8 mg/dL (0.6-1.3); POTASSIUM 3.8 mmol/L (3.5-5.1)
[2021-04-03 04:50] LABS: HEMATOCRIT 29.3 % (37.0-47.0); HEMOGLOBIN 9.1 gm/dL (12.0-15.0); MCH 25.9 pg (26.0-34.0); MCHC 30.9 g/dL (28.0-37.0); MCV 83.7 fL (80.0-100.0); RBC 3.51 mil/uL (4.20-5.00); RDW-CV 19.8 % (10.5-14.5); WBC 9.2 thou/uL (4.0-11.0)
[2021-04-03 08:14] VITALS: BP 117/59
[2021-04-03 20:00] VITALS: BP 121/71
[2021-04-04 08:16] VITALS: BP 122/64
[2021-04-04 11:27] VITALS: BP 122/64
== END 2021-04-04 17:18 | disposition home health service (06) | DRG 947 ==
LOC: M.REH 14:59
PROVIDERS: ADMIT Physical Medicine & Rehabilitation; ATTEND Physical Medicine & Rehabilitation
PROC: 5A09357 Assistance with Respiratory Ventilation, Less than 24 Consecutive Hours, Continuous Positive Airway Pressure (ICD-10-PCS; principal; 2021-03-20)
PROC: 5A09357 Assistance with Respiratory Ventilation, Less than 24 Consecutive Hours, Continuous Positive Airway Pressure (ICD-10-PCS; 2021-03-22)
PROC: 5A09357 Assistance with Respiratory Ventilation, Less than 24 Consecutive Hours, Continuous Positive Airway Pressure (ICD-10-PCS; 2021-03-26)
PROC: 5A09357 Assistance with Respiratory Ventilation, Less than 24 Consecutive Hours, Continuous Positive Airway Pressure (ICD-10-PCS; 2021-03-27)
PROC: 5A0935A Assistance with Respiratory Ventilation, Less than 24 Consecutive Hours, High Flow/Velocity Cannula (ICD-10-PCS; 2021-03-28)
PROC: 5A09357 Assistance with Respiratory Ventilation, Less than 24 Consecutive Hours, Continuous Positive Airway Pressure (ICD-10-PCS; 2021-03-29)
PROC: 5A09357 Assistance with Respiratory Ventilation, Less than 24 Consecutive Hours, Continuous Positive Airway Pressure (ICD-10-PCS; 2021-04-01)
DX: R53.81 Other malaise (principal); J96.21 Acute and chronic respiratory failure with hypoxia; J15.6 Pneumonia due to other Gram-negative bacteria; R65.11 Systemic inflammatory response syndrome (SIRS) of non-infectious origin with acute organ dysfunction; G93.41 Metabolic encephalopathy; J96.22 Acute and chronic respiratory failure with hypercapnia; J44.1 Chronic obstructive pulmonary disease with (acute) exacerbation; J44.0 Chronic obstructive pulmonary disease with (acute) lower respiratory infection; I95.9 Hypotension, unspecified; G62.9 Polyneuropathy, unspecified; F32.9 Major depressive disorder, single episode, unspecified; D64.9 Anemia, unspecified; G89.29 Other chronic pain; F41.9 Anxiety disorder, unspecified; Z85.118 Personal history of other malignant neoplasm of bronchus and lung; Z87.891 Personal history of nicotine dependence